=== PATIENT | male | born 1975 | race Caucasian/White ===

== ENCOUNTER 2022-10-13 10:56 | Emergency (ER) | payer BC, OTHER ==
[2022-10-13] MEDS ORDERED: Lidocaine/Epineph/Tetracaine 3 ML Syringe TOP ONE (11:34)
[2022-10-13 12:40] VITALS: BP 128/88; PULSE 67
== END 2022-10-13 12:38 | disposition home or self-care (01) ==
LOC: MW.ED 10:56
DX: S01.01XA Laceration without foreign body of scalp, initial encounter (principal); Z88.0 Allergy status to penicillin; Y29.XXXA Contact with blunt object, undetermined intent, initial encounter
CPT/HCPCS: 12001; 99282; A9270; 99283

== ENCOUNTER 2022-10-21 06:14 | Emergency (ER) | payer BC, OTHER ==
[2022-10-21 06:31] VITALS: BP 113/74; PULSE 68
== END 2022-10-21 06:29 | disposition home or self-care (01) ==
LOC: MW.ED 06:14
DX: Z48.01 Encounter for change or removal of surgical wound dressing (principal)
CPT/HCPCS: 99281